=== PATIENT | male | born 1945 | race Caucasian/White ===

== ENCOUNTER 2018-04-08 07:58 | Inpatient (IN) ==
--- NOTE | 2018-04-03 12:41 | MH ---
cc: Be Bolaños MD DATE OF ADMISSION: 04/08/2018 PREOPERATIVE DIAGNOSIS: Osteoarthritis, left knee. HISTORY: The patient is a 72-year-old white male who has experienced pain of his left knee extending back at least for 17 years. In 2001, he reports having undergone orthopedic evaluation, at which time he was diagnosed as having an arthritic condition and encouraged to conform the conservative management, being told that at some point in the future, he may require a more aggressive course of treatment. He began bicycle riding as a form of exercise activities that has become his passion averaging approximately 100 miles per week at this time. The majority of his current riding involves back with trails for which he has begun to experience increasing difficulty maintaining the exercise routine. He has undergone recent evaluation with his primary care physician, at which time he did receive an intraarticular injection about the knee that did not afford him any appreciable benefit. His x-ray studies reported medial joint space osteoarthritis with mild tricompartmental spurring. The patient has been taking both Tylenol and ibuprofen for pain management and wearing a copper elastic knee support. He did reveal that he had undergone an arthrotomy of his left knee in the early involving a medial meniscectomy that was completed in the [place] area. The patient reported an uneventful recovery at that time. At the time of his more current evaluation, he did receive a repeat intra-articular injection about his left knee and was followed on an outpatient basis thereafter. The alternatives to continue conservative management versus operative intervention involving total knee arthroplasty were outlined in detail. Emphasis was made regarding the fact that the decision to proceed with surgery would be left entirely to the patient's discretion. The patient considered his options in this regard and subsequently returned to the office in more recent followup expressing his desire to proceed accordingly. In compliance with his wishes, he is currently being admitted in order that the above be accomplished. His past medical history, hospitalizations, and surgeries have included open reduction internal fixation of a right ankle fracture, tonsillectomy, right cataract excision, colonoscopy and medical management for a balance disorder that apparently was related to the temporary labyrinth condition. The patient denies active medical illnesses. He has had hemorrhoidectomy and cystoscopy for history of kidney stone. He takes no prescribed medications. He does take CoQ10, Aleve and a hemp product [id number] and he is currently taking some steroid eyedrops following his recent history of surgery. REVIEW OF SYSTEMS: He does wear glasses. Denies headaches, seizure or syncope. No sinus congestion or epistaxis. Diminished auditory acuity, especially with low tones about the right ear. No tinnitus. No bleeding gums or dysphagia. Denies cough, shortness of breath, upper respiratory infection, pneumonia, or tuberculosis. No angina or heart disease. His appetite is good. Bowel movements are regular. There is a questionable history of hepatitis in the past. No ulcers. Positive history of hemorrhoids. No urinary tract infection. There is a history of kidney stones. No prostate disease. Fractures of the left fibula, the left long finger and the right thumb all treated nonoperatively. Additional fracture of the right ankle as described. No psychiatric illness. His remaining review of systems is unremarkable and noncontributory. FAMILY HISTORY: 52 years. is 71 years of age, in good health. Two daughters, both of whom are described as being in good health. Family history is positive for hypertension, COPD and cancer of the colon. SOCIAL HISTORY: The patient completed a master's degree. 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 He denies active use of tobacco since the early , but he had been less than a 1 pack per day smoker for about 8 years prior to that time. Ethanol consumption in a very limited and social basis. PHYSICAL EXAMINATION: VITAL SIGNS: Height 6 feet 1 inch, weight 197 pounds. GENERAL: An alert, oriented, and responsive 72-year-old white male who sits quietly upon the examination table. No obvious distress. HEAD, EARS, EYES, NOSE AND THROAT: Pupils are equal, round and reactive to light. Extraocular movements full. Sclerae are clear. External nares clear. External auditory canals clear. Dental intact. Mucous membranes pink and moist. Pharynx clear. NECK: Supple. Minimal discomfort at the extremes of motion indicated to be chronic in nature with the patient reporting a longstanding history of stress injury to his neck region that apparently was later diagnosed as having some type of fracture. Carotid pulse is palpable bilaterally. Trachea midline. Thyroid without enlargement. LUNGS: Clear to auscultation and percussion. No CVA tenderness. No discomfort throughout the dorsolumbar spine. HEART: Regular rate and rhythm. No murmur, gallop. ABDOMEN: Soft, nontender, bowel sounds present. RECTAL: Per primary care physician. EXTREMITIES: Left knee, a well-healed surgical wound along the medial aspect of the left knee consistent with prior history of surgery. No appreciable swelling or effusion. Posteromedial joint line tenderness without palpable deformity. Apprehension and compression sign negative. Limited mobility towards the extremes of flexion with mild suggestion of crepitation. No collateral ligamentous laxity. Som test and drawer sign negative. Pivot shift and Esha sign minimally positive for medial compartment pain. Straight leg raising unremarkable at 80 degrees. Satisfactory mobility of the left hip with no associated pain. Mild antalgic gait. NEUROLOGIC: Cranial nerves 2-12 grossly intact. IMPRESSION: Osteoarthritis, left knee. PLAN: Left total knee arthroplasty. The nature of the planned surgical procedure, the potential complications and risks associated, the expectations of surgery and the consent form were thoroughly reviewed with the patient in the presence of his prior to admission to the hospital. Pavel has indicated his full understanding regarding all of the above and given consent to proceed with treatment as outlined. Medical evaluation and clearance for surgery completed by his primary care physician, Dr. Thomas. MD CHRISTOPHER Hernandez/[email or web address]/german , 11:47 AM , 12:03 PM
[2018-04-08] MEDS ORDERED: Chlorhexidine Gluconate 2% 1 Pack (2 Cloths) TOPICAL ONE (08:30)
[2018-04-08] MEDS ORDERED: Metoprolol Tartrate 25 MG Tablet PO ONE (08:30)
[2018-04-08] MEDS ORDERED: Sodium Chlor 0.9% Inj 50 ML, Bupivacaine Liposo PF 1.3% Inj 20 ML, Bupivacaine PF 0.25%... P-ARTICULR ONE ×3 (08:31)
[2018-04-08] MEDS ORDERED: ceFAZolin 2 GM Premix Inj 2 GM/50 ML PIGGYBACK IV.SIG SCH (09:00)
[2018-04-08] MEDS ORDERED: Sodium Chlor 0.9% Inj 500 ML IV.SIG SCH (09:00)
[2018-04-08] MEDS ORDERED: Bupivacaine Liposomal PF 1.3% Inj 20 ML Vial ONE (09:09)
[2018-04-08] MEDS ORDERED: fentaNYL Citrate Inj 100 MCG/2 ML Ampul ONE ×2 (09:19→13:02)
[2018-04-08] MEDS ORDERED: Ketorolac Inj 30 MG/ML (IVP) Vial IV.PUSH ONE (10:25)
[2018-04-08] MEDS ORDERED: Normosol-R pH 7.4 Inj 1,000 ML IV.CONT ONE (10:25)
[2018-04-08] MEDS ORDERED: Neostigmine Inj 5 MG/5 ML Syringe IV.PUSH ONE (10:25)
[2018-04-08] MEDS ORDERED: Lidocaine PF 1% Inj 5 ML Syringe OTHER ONE (10:25)
[2018-04-08] MEDS ORDERED: Phenylephrine/NS 1000 MCG/10ML Syringe IV.PUSH ONE (10:25)
[2018-04-08] MEDS ORDERED: Glycopyrrolate Inj 1 MG/5 ML Syringe IV.PUSH ONE (10:25)
[2018-04-08] MEDS: Tranexamic Acid Inj 1,000 MG in Sodium Chlor 0.9% Inj 100 ML IV.SIG SCH ×2 (10:56→14:08)
[2018-04-08] MEDS ORDERED: Bisacodyl 10 MG Supp RECTAL PRN (13:08)
[2018-04-08] MEDS ORDERED: Post-op Orders (for Pharmacy) OTHER STA (13:08)
[2018-04-08] MEDS ORDERED: Aluminum/Magnesium/Simethacone Susp 30 ML UDC PO PRN ×2 (13:08→17:48)
[2018-04-08] MEDS ORDERED: Morphine Inj 30 MG/30 ML PCA.VIAL PCA PRN (13:08)
[2018-04-08] MEDS ORDERED: Morphine Inj 4 MG/ML Vial IV.PUSH PRN (13:08)
[2018-04-08] MEDS ORDERED: Naloxone Inj 0.4 MG/ML Vial IV.PUSH PRN (13:08)
[2018-04-08] MEDS ORDERED: Acetaminophen 325 MG Tablet PO PRN (13:08)
--- NOTE | 2018-04-08 13:11 | P.DCO ---
- Diagnosis (1) Degenerative joint disease of knee, left Status: Acute - Physical Therapy Order: Evaluate and treat, Improve ambulation, Strength and gait training - Home Health Nursing Order: Wound care and dressing changes, Nursing assessment with vital signs - Talent Recruiter Order: To evaluate: Living conditions/environment, Support services Order: To provide: Long range planning, Community services - Case Management Consult Case Management Consult-Home Health: Yes - Certification I have seen patient aPvel Perez on 04/08/18. My clinical findings support the need for the requested home health care services because: Limited ability to care for self, High risk of falls I certify that my clinical findings support that this patient is homebound because: Post-op weakness, Unsteady gait/balance, Unsafe to leave home unassisted (1) Degenerative joint disease of knee, left Qualifiers: Osteoarthritis type: primary Qualified Code(s): M17.12 - Unilateral primary osteoarthritis, left knee
[2018-04-08] MEDS ORDERED: Morphine Inj 30 MG/30 ML PCA.VIAL PCA ONE (13:16)
[2018-04-08] MEDS ORDERED: *morphine SULFATE 4 MG/ML PERIprocedure ONLY ONE (13:17)
--- NOTE | 2018-04-08 13:39 | MP ---
cc: Be Bolaños MD DATE OF OPERATION: 04/08/2018 PREOPERATIVE DIAGNOSIS: Osteoarthritis, left knee. POSTOPERATIVE DIAGNOSIS: Osteoarthritis, left knee. PROCEDURE PERFORMED: Left total knee arthroplasty. SURGEON: Be Bolaños MD ANESTHESIA: General endotracheal. INDICATIONS: This is a 72-year-old white male with a 17-year history of left knee pain, having undergone previous orthopedic evaluation, at which time he was diagnosed as having an arthritic condition and conformed to conservative management over the years thereafter. With the passage of time, he became progressively more symptomatic with pain being unresponsive to ongoing conservative management. He noted that he had undergone a previous arthroscopic medial meniscectomy in the early 1970s with an uneventful recovery thereafter. He had undergone a more recent orthopedic evaluation with the undersigned physician, at which time x-ray studies revealed obvious degenerative changes being most pronounced throughout the medial compartment with near [id number] apposition. Findings and treatment options were reviewed. The pros and cons of continued conservative management versus operative intervention involving a total knee arthroplasty were outlined in detail. Emphasis was made regarding the fact that the decision to proceed with surgery would be left entirely to the patient's discretion. The patient considered his options in this regard and subsequently expressed a desire to proceed accordingly for which he was currently scheduled for admission to the hospital. FORMAT: Following induction of satisfactory general anesthesia by endotracheal intubation as completed per the Department of Anesthesia, a tourniquet was established around the proximal portion of the left lower extremity. The extremity proper was isolated with a U-drape, thereafter being prepped with Betadine solution and draped into a sterile field in the routine manner. Prior to initiation of the actual procedure, the standard timeout protocol was completed. All parameters were appropriately addressed and confirmed by operating room personnel. The extremity was elevated for approximately 1 minute and the tourniquet thus inflated to 250 mmHg pressure. A sharp skin incision was initiated midline over the anterior aspect of the knee and developed through the underlying subcutaneous tissue with hemostasis maintained by electrocautery. By deepening dissection, the anterior capsule was exposed, the medial capsulotomy completed and the patella subluxed in the lateral orientation. Examination of the joint space revealed severe degenerative changes throughout the medial compartment where there was complete erosion of articular cartilage and subchondral bone exposed. The degenerative process extended into the patellofemoral articulation. The articular surface of the patella was resected. The 3-hole guide was utilized for establishing post holes. The anterior cruciate ligament as well as medial and lateral meniscus structures were sharply excised. A centering hole was placed in the distal aspect of the femur, allowing positioning of the intramedullary guide. The distal femoral cutting jig was attached and the distal femur resected. AP measurement noted 75 mm sizing to be appropriate. The matching cutting block was positioned. Anterior, posterior and chamfer cuts were completed. The tibial plateau was subluxed in an anterior orientation, allowing positioning of the extramedullary guide. The tibial plateau was resected and measured with 87 mm sizing determined to be satisfactory. A trial reduction followed utilizing a 75 mm anatomic femoral component and an 87 mm tibial base with 10 mm bearing inserts trialed. The 10 mm thickness was determined to be a satisfactory fit. The knee was readily brought to full extension. There was no laxity to varus and valgus stress at both 0 and 90 degrees flexed posture. Orientation was confirmed as appropriate with measurement of the pelvic guide through the mechanical access of the knee. A trial reduction followed utilizing a 34 mm standard 3 post-patellar button. Once again, good tracking noted with no tendency towards subluxation. All trial components being removed, the remaining portion of the proximal tibia was prepared for insertion of the permanent component. The joint space was thoroughly lavaged with pulsating antibiotic solution, hemostasis maintained by electrocautery. An autogenous bone plug was inserted into the distal femoral guide hole and thereafter a preparation of Biomet bone cement was utilized in inserting knee components in a sequential fashion, which included an 87 mm fixed cruciate tibial plate to which a 10 mm Vanguard tibial bearing insert was secured with locking clemente. The 75 mm Vanguard femoral component was firmly seated onto the distal femur, excess cement being removed. The knee was brought to full extension and thereafter, the 34 mm standard 3 post-patellar button was attached and maintained in place with patellar clamp while cement hardening was completed. Final range of motion assessment noted good tracking and stability throughout the knee, irrigation repeated with hemostasis maintained. Autovac drain tubes were inserted through superior stab wounds. The capsule was repaired with 0 Vicryl suture. The remaining portion of the wound was closed in layers in the routine manner, skin margins being reapproximated with a running subcuticular 3-0 Vicryl suture. An Exparel cocktail was injected both pre and post implantation of components. Tourniquet deflated after 55 minutes of tourniquet time. Anesthesia discontinued. The patient was thus transferred to a hospital bed and returned to the recovery room in satisfactory condition, having tolerated his operative procedure well. Estimated blood loss was approximately 100 mL as determined per Anesthesia. All implants were of the Biomet pump house operator. MD CHRISTOPHER Hernandez/agustín , 12:58 PM , 01:10 PM
[2018-04-08] MEDS ORDERED: Tranexamic Acid Inj 1,000 MG in Sodium Chlor 0.9% Inj 100 ML IV.SIG SCH ×4 (14:00)
--- NOTE | 2018-04-08 14:02 | XR ---
EXAM DATE: 04/08/2018 1:58 PM EST AGE/SEX: 72 years / Male INDICATIONS: Left total knee replacement. CLINICAL DATA: This is the patient's initial encounter. Patient reports that signs and symptoms have been present for 1 day and indicates a pain score of 6/10. MEDICAL/SURGICAL HISTORY: None. None. COMPARISON: POI, XR KNEE COMPLETE, LEFT, 01/15/2018. . FINDINGS: Patient is now postop left total knee arthroplasty. Alignment appears normal. No fracture. Surgical d rains are present; no perceptible joint effusion. CONCLUSION: Expected radiographic appearance postop total knee arthroplasty. No acute complication demonstrated. Electronically signed by: Bobby Diaz MD Board Certified Radiologist 04/08/2018 2:00 PM EST
--- NOTE | 2018-04-08 17:41 | P.CONIM ---
History of Present Illness Consult date: 04/08/18 Reason for Consult: Opinion and recommendation of treatment patient's cataracts and nausea Primary Care Provider: Jacob Thomas JR, DO History of Present Illness: 72-year-old white male with a history of osteoarthritis, cataracts who had long-term history of left knee pain despite conservative treatment and electively underwent a left total knee arthroplasty with Dr. Bolaños, orthopedic surgery today. Patient states that he has some mild postop nausea. He also reports a history of chronic constipation when he takes narcotics. He denies a history of bloody stools or black stools. He reports a history of heartburn sensation in which he takes ranitidine over-the- counter. Overall he states that his pain is controlled postoperatively. He has been using nepafenac eye drop for his right eye to help with inflammation. He denies any eye pain, blurred vision, or eye redness. He has no other complaints at this time. Review of Systems Review of Systems: all other systems reviewed are negative PMFSH History History Provided By: Patient Family History Family History Mother COPD (chronic obstructive pulmonary disease) Social History Social History Substance History: No History of Abuse Second Hand Smoke Exposure: No Smoking Status: Former smoker Tobacco Type: Cigarettes How Often Do You Have a Drink Containing Alcohol: 2 to 4 times a month Recent Travel in [facility] within the Last 8 Weeks: No Recent Out of Country Travel within the Last 8 Weeks: No Medications and Allergies Allergies Allergy/AdvReac Type Severity Reaction Status Date / Time No Known Allergies Allergy Verified 04/08/18 08:35 Home Medications Medication Instructions Recorded Confirmed Type coQ10 (ubiquinol) 100 mg PO DAILY 03/27/18 03/27/18 History ranitidine HCl 300 mg PO DAILY PRN 03/27/18 03/27/18 History nepafenac [Ilevro] 1 drp RIGHT EYE DAILY 04/08/18 04/08/18 History Active Medications: Active Medications Acetaminophen (Tylenol) 650 mg PO Q6H PRN PRN Reason: FEVER > 102 F Hydrocodone Bitart/Acetaminophen ([place] 5/325) 1 tab PO Q4H PRN PRN Reason: PAIN LESS THAN 5 ON SCALE Hydrocodone Bitart/Acetaminophen ([place] 5/325) 2 tab PO Q6H PRN PRN Reason: PAIN SCALE 5 TO 10 Al Hydrox/Mg Hydrox/Simethicone (Mag-Al Plus Susp Liq) 30 ml PO Q6H PRN PRN Reason: INDIGESTION Al Hydroxide/Mg Hydroxide (Milk Of Magnesia Liq) 30 ml PO BID PRN PRN Reason: Mild Constipation Aspirin (Aspirin) 325 mg PO BID DAMON Bisacodyl (Dulcolax Supp) 10 mg RECTAL DAILY PRN PRN Reason: SEVERE CONSITIPATION Famotidine (Pepcid) 20 mg PO BID PRN PRN Reason: ACID REFLUX Lactated Ringer's (Lr 1000 Ml Inj) 1,000 mls @ 30 mls/hr IV.SIG .Q24H [facility] Stop: 04/09/18 08:29 Last Infusion: 04/08/18 12:52 Dose: Infused Sodium Chloride (Ns Inj) 500 mls @ 30 mls/hr IV.SIG .Q10H DAMON Cefazolin Sodium/Dextrose (Ancef 2 Gm Premix Inj) 2 gm in 50 mls @ 100 mls/hr IV.SIG ADVANCED DEVELOPER [facility] Stop: 04/12/18 08:59 Last Infusion: 04/08/18 11:15 Dose: Infused Lactated Ringer's (Lr 1000 Ml Inj) 1,000 mls @ 80 mls/hr IV.CONT .[id number] DAMON Morphine Sulfate (Morphine Inj) 30 mg in 30 mls @ 0 mls/hr SUSTAINABILITY MANAGER UNSCH PRN PRN Reason: prn pain Stop: 04/09/18 13:07 Tranexamic Acid 1,000 mg/ (Sodium Chloride) 110 mls @ 200 mls/hr IV.SIG ADVANCED DEVELOPER [facility] Stop: 04/08/18 20:00 Cefazolin Sodium 1 gm/ Sodium (Chloride) 100 mls @ 200 mls/hr IV.SIG Q6H [facility] Stop: 04/09/18 05:29 Lactulose (Lactulose Liq) 30 ml PO DAILY PRN PRN Reason: SEVERE CONSITIPATION Miscellaneous Information (Misc Nursing Information) 0 each OTHER UNSCH PRN PRN Reason: SEE DOSE INSTRUCTIONS Miscellaneous Information (Misc Nursing Information) 0 each OTHER UNSCH PRN PRN Reason: SEE LABEL COMMENTS Stop: 04/09/18 12:59 Morphine Sulfate (Morphine Inj) 2 mg IV.PUSH Q3H PRN PRN Reason: BREAKTHROUGH PAIN Naloxone HCl (Narcan Inj) 0.4 mg IV.PUSH PRN PRN PRN Reason: Resp rate < 10 Ondansetron HCl (Zofran Inj) 4 mg IV.PUSH Q6H PRN PRN Reason: NAUSEA OR VOMITING Patient Own Med ( Nepafenac [Ilevro] 1 Drp) 0.3% Instill 1 Drop Into Right Eye Daily 0 each RIGHT EYE DAILY [facility] Povidone Iodine (Betadine 7.5% Scrub) 1 applicatio TOPICAL ONCE DAMON Stop: 04/12/18 08:59 Last Admin: 04/08/18 09:25 Dose: 1 applicatio Senna/Docusate Sodium (Denisha-Colace) 1 tab PO BID [facility] Sennosides (Senokot) 17.2 mg PO BID PRN PRN Reason: Moderate Constipation Sodium Chloride (Ns Flush) 2 ml IV.FLUSH BID DAMON Sodium Chloride (Ns Flush) 2 ml IV.FLUSH PRN PRN PRN Reason: FLUSH AFTER USING IV ACCESS Zolpidem Tartrate (Ambien) 5 mg PO HS PRN PRN Reason: INSOMNIA Physical Exam Vital signs: Vital Signs 04/08/18 08:43 04/08/18 12:56 04/08/18 13:00 Temperature 97.2 F L Pulse Rate 61 71 67 Respiratory Rate 16 13 19 Blood Pressure 181/99 H 153/69 H 130/68 Pulse Oximetry 99 99 97 04/08/18 13:15 04/08/18 13:19 04/08/18 13:30 Temperature Pulse Rate 61 64 Respiratory Rate 14 12 12 Blood Pressure 131/72 129/64 Pulse Oximetry 98 99 04/08/18 13:45 04/08/18 14:00 04/08/18 14:15 Temperature Pulse Rate 56 L 61 59 L Respiratory Rate 12 12 12 Blood Pressure 150/71 H 134/66 143/74 H Pulse Oximetry 98 99 99 04/08/18 14:30 04/08/18 15:00 04/08/18 15:30 Temperature 97.8 F Pulse Rate 66 69 63 Respiratory Rate 14 22 18 Blood Pressure 144/72 H 156/83 H 143/76 H Pulse Oximetry 96 100 99 04/08/18 16:41 Temperature 97.3 F L Pulse Rate 73 Respiratory Rate 18 Blood Pressure 154/76 H Pulse Oximetry 98 Intake & Output 04/07/18 04/08/18 04/08/18 18:59 06:59 18:59 Intake Total 1160 / 1160 Output Total 200 / 200 Balance 960 / 960 Weight 90.6 kg Intake: IV 1160 / 1160 LR 1000 mL Inj 1,000 ML @ 30 1000 / 1000 mls/hr IV.SIG .Q24H [facility]ON Rx#: [id number] Cyklokapron Inj 1,000 MG In NS 110 / 110 Inj 100 ML @ 200 mls/hr IV.SIG ONCE [facility] Rx#:[id number] Ancef 2 GM Premix Inj 2 gm In 50 / 50 50 ml @ 100 mls/hr IV.SIG ADVANCED DEVELOPER [facility]ON Rx#:[id number] Output: Estimated Blood Loss 100 / 100 Wound Drainage 100 / 100 # 1 Left Upper Knee 100 / 100 Other: Weight On Admission 90.6 kg Narrative: GENERAL: Well-nourished well-developed pleasant male sitting up in a chair in no acute distress SKIN: Warm and dry. HEAD: Atraumatic. Normocephalic. EYES: Pupils equal and round. No scleral icterus. No injection or drainage. ENT: No nasal bleeding or discharge. Mucous membranes pink and moist. NECK: Trachea midline. No JVD. CARDIOVASCULAR: Regular rate and rhythm. RESPIRATORY: No accessory muscle use. Clear to auscultation. Breath sounds equal bilaterally. GASTROINTESTINAL: Abdomen soft, non-tender, nondistended. Normoactive bowel sounds MUSCULOSKELETAL: Left knee bandage clean dry and intact drain in place NEUROLOGICAL: Awake and alertTo person place time. No obvious cranial nerve deficits. Motor grossly within normal limits. Normal speech. PSYCHIATRIC: Appropriate mood and affect; insight and judgment normal. Results Labs CBC & Chem 7: 04/09/18 04:00 Imaging Impressions Knee X-Ray 04/08/18 13:05 CONCLUSION: Expected radiographic appearance postop total knee arthroplasty. No acute complication demonstrated. ABG Impressions Knee X-Ray 04/08/18 13:05 CONCLUSION: Expected radiographic appearance postop total knee arthroplasty. No acute complication demonstrated. Assessment and Plan (1) Degenerative joint disease of knee, left: Code(s): M17.12 - Unilateral primary osteoarthritis, left knee Status: Acute Plan 72-year-old male Status post left total knee arthroplastycontinue postoperative care, pain control, physical therapy per orthopedic surgery Zofran per nausea Cataract history - resume nepafenac eye drops as prescribed constipation history - schedule bowel regimen pericolace bid elevated BP - may be due to pain, will monitor, IV vasotec prn for SBP>180 DVT prophylaxis- aspirin per Ortho Thank you for this consultation _ (1) Degenerative joint disease of knee, left Qualifiers: Osteoarthritis type: primary Qualified Code(s): M17.12 - Unilateral primary osteoarthritis, left knee
[2018-04-08] MEDS: ceFAZolin Inj 1 GM in Sodium Chlor 0.9% Inj 100 ML IV.SIG SCH ×2 (18:02→23:23)
[2018-04-08] MEDS ORDERED: Famotidine 20 MG Tablet PO PRN (21:00)
[2018-04-08] MEDS ORDERED: Zolpidem Tartrate 5 MG Tablet PO PRN (21:00)
[2018-04-08] MEDS: Senna/Docusate Sodium 8.6/50 MG Tablet PO SCH (21:31)
[2018-04-08] MEDS: Aspirin 325 MG Tablet PO SCH (21:31)
[2018-04-09] MEDS: ceFAZolin Inj 1 GM in Sodium Chlor 0.9% Inj 100 ML IV.SIG SCH (05:07)
[2018-04-09 05:10] LABS: Hemoglobin 12.7 gm/dL (13.0-17.0)
[2018-04-09] MEDS: Senna/Docusate Sodium 8.6/50 MG Tablet PO SCH ×2 (08:02→23:52)
[2018-04-09] MEDS ORDERED: Non-Formulary Drug (Coq10 (Ubiquinol) [Coq10 (Ubiquinol)] 100 MG) PO SCH (09:00)
[2018-04-09] MEDS: Aspirin 325 MG Tablet PO SCH ×2 (10:00→23:51)
--- NOTE | 2018-04-09 13:23 | P.PNIM ---
Subjective Interval history: Reports his nausea has improved and resolved. Tolerating breakfast. He states that he will stay 1 more day and return home with home health care tomorrow. Overall his pain is controlled. Did walk in the hallways with physical therapy today. Physical Exam Vital signs: Vital Signs 04/08/18 13:30 04/08/18 13:45 04/08/18 14:00 Temperature Pulse Rate 64 56 L 61 Respiratory Rate 12 12 12 Blood Pressure 129/64 150/71 H 134/66 Pulse Oximetry 99 98 99 04/08/18 14:15 04/08/18 14:30 04/08/18 15:00 Temperature Pulse Rate 59 L 66 69 Respiratory Rate 12 14 22 Blood Pressure 143/74 H 144/72 H 156/83 H Pulse Oximetry 99 96 100 04/08/18 15:30 04/08/18 16:41 04/08/18 21:55 Temperature 97.8 F 97.3 F L 97.4 F L Pulse Rate 63 73 71 Respiratory Rate 18 18 16 Blood Pressure 143/76 H 154/76 H 133/71 Pulse Oximetry 99 98 95 04/09/18 00:45 04/09/18 06:05 04/09/18 08:00 Temperature 98.1 F 97.5 F L 98.5 F Pulse Rate 72 71 74 Respiratory Rate 16 16 18 Blood Pressure 120/67 128/75 130/68 Pulse Oximetry 95 95 98 04/09/18 12:00 Temperature 99 F Pulse Rate Respiratory Rate 18 Blood Pressure 131/70 Pulse Oximetry 99 Intake & Output 04/08/18 04/09/18 04/09/18 18:59 06:59 18:59 Intake Total 1260 / 1260 820 / 820 100 / 100 Output Total 200 / 200 570 / 570 Balance 1060 / 1060 250 / 250 100 / 100 Weight 90.6 kg 90.5 kg Intake: IV 1260 / 1260 100 / 100 100 / 100 LR 1000 mL Inj 1,000 ML @ 30 1000 / 1000 mls/hr IV.SIG .Q24H [facility] Rx#: [id number] Cyklokapron Inj 1,000 MG In NS 110 / 110 Inj 100 ML @ 200 mls/hr IV.SIG ONCE [facility] Rx#:[id number] Ancef 2 GM Premix Inj 2 gm In 50 / 50 50 ml @ 100 mls/hr IV.SIG [employer] [facility] Rx#:[id number] Ancef Inj 1 GM In NS Inj 100 ML 100 / 100 100 / 100 100 / 100 @ 200 mls/hr IV.SIG Q6H [facility] Rx #:[id number] Oral 720 / 720 Output: Urine 400 / 400 Estimated Blood Loss 100 / 100 Wound Drainage 100 / 100 170 / 170 # 1 Left Upper Knee 100 / 100 170 / 170 Other: Date of Last Bowel Movement 04/08/18 # Bowel Movements 0 Weight On Admission 90.6 kg Narrative: GENERAL: Well-nourished well-developed pleasant male sitting up in a chair in no acute distress CARDIOVASCULAR: Regular rate and rhythm. RESPIRATORY: No accessory muscle use. Clear to auscultation. Breath sounds equal bilaterally. GASTROINTESTINAL: Abdomen soft, non-tender, nondistended. MUSCULOSKELETAL: Left knee bandage clean dry, previous dry blood, and intact drain in place NEUROLOGICAL: Awake and alert to person place time Motor grossly within normal limits. Normal speech. Results Labs CBC & Chem 7: 04/09/18 04:00 Imaging Imaging: Impressions Knee X-Ray 04/08/18 13:05 CONCLUSION: Expected radiographic appearance postop total knee arthroplasty. No acute complication demonstrated. Assessment and Plan (1) Degenerative joint disease of knee, left: Code(s): M17.12 - Unilateral primary osteoarthritis, left knee Status: Acute Plan 72-year-old male Status post operative day #1 left total knee arthroplastycontinue postoperative care, pain control, physical therapy per orthopedic surgery Zofran per nausea Cataract history - resume nepafenac eye drops as prescribed constipation history - schedule bowel regimen pericolace bid elevated BP - may be due to pain, blood pressure much better controlled today, no further treatment needed DVT prophylaxis- aspirin per Ortho Medically stable to be transitioned home, will sign off and re-consult as needed Progress Note: Quality VTE Deep Vein Thrombosis/Pulmonary Embolism Present on Admission: No _ (1) Degenerative joint disease of knee, left Qualifiers: Osteoarthritis type: primary Qualified Code(s): M17.12 - Unilateral primary osteoarthritis, left knee
[2018-04-09] MEDS: NEPAFENAC 0.3% RIGHT EYE SCH (18:42)
--- NOTE | 2018-04-10 07:41 | MD ---
cc: Be Bolaños MD, Dr. DATE OF DISCHARGE: 04/10/2018 ADMITTING DIAGNOSIS: Osteoarthritis, left knee. DISCHARGE DIAGNOSIS: Osteoarthritis, left knee. HISTORY: A 72-year-old white male with a lengthy history of left knee pain extending back for at least 17 years, having undergone previous orthopedic evaluation and diagnosed with an arthritic condition for which he initially had conformed to conservative management. Over the years, he became progressively more symptomatic with pain that began to limit all weightbearing activities. He had undergone recent office evaluation, at which time x-ray studies had revealed obvious degenerative changes about the left knee for which findings and treatment options were reviewed. The pros and cons of continued conservative management versus operative intervention that would involve total knee arthroplasty were outlined in detail. Emphasis was made regarding the fact that the decision to proceed with surgery would be left entirely to the patient's discretion. The patient considered his options in this regard and subsequently indicated his desire to proceed accordingly ;and in compliance with his wishes, he was scheduled for admission at this time in order that the above be accomplished. For additional details with regard to his pertinent history, interested parties would be direct to the documentation of his admitting history and physical report. PHYSICAL EXAMINATION: His physical examination at the time of admission revealed a well-healed surgical wound along the medial aspect of the left knee consistent with a prior history of surgery. No appreciable swelling or effusion. Posteromedial joint line tenderness, without palpable deformity. Apprehension and compression sign negative. Limited mobility for the extremes of flexion with crepitation is suggested. No collateral ligamentous laxity. Som test and drawer sign negative. Pivot shift and Esha sign positive for medial compartment pain. Straight-leg raising unremarkable at 80 degrees. Satisfactory mobility of the left hip with no associated pain. Mild antalgic gait. HOSPITAL COURSE: Prior to admission to the hospital, the patient had undergone medical evaluation and clearance for surgery as completed by his primary care physician, Dr. Thomas. He was taken to the operating room on 04/08/2018; and on that date, underwent a left total knee arthroplasty completed in an uncomplicated manner. The patient was noted to have tolerated his operative procedure well. His postoperative course stable thereafter. Hemoglobin and hematocrit assessment postoperatively was 12.7 and 36.0 respectively. The patient was progressively mobilized under the guidance of physical therapy, being permitted weightbearing to tolerance about the left lower extremity. Followup examination of his surgical wound noted to be intact, healing favorably with no evidence of infection. Medical followup per the hospitalist service. DVT prophylaxis initiated. Weight Loss Physician consulted to assist with discharge planning. The patient indicated a desire to be discharged home and continue his rehabilitation on an outpatient basis. Plans were finalized in this regard; and pending medical clearance, he was scheduled for discharge on the second postoperative day, at which time he was noted to be making favorable progress with regard to his initial rehabilitation program. He was scheduled to be seen in office followup in approximately 4 weeks. CONDITION AT THE TIME OF DISCHARGE: Stable. PROGNOSIS: Favorable. DISCHARGE MEDICATIONS: Included hydrocodone 5/325, #30. Aspirin 325 mg 1 tab twice daily for 3 weeks, #40. MD CHRISTOPHER Hernandez/soo , 06:38 AM , 06:45 AM
[2018-04-10] MEDS: Aspirin 325 MG Tablet PO SCH (08:42)
[2018-04-10] MEDS: Senna/Docusate Sodium 8.6/50 MG Tablet PO SCH (08:42)
[2018-04-10] MEDS: NEPAFENAC 0.3% RIGHT EYE SCH (08:43)
[2018-04-10 10:06] VITALS: BP 141/76; PULSE 82; RESP 15; TEMP 97.4; O2SAT 99
== END 2018-04-10 10:59 | disposition home health service (06) | DRG 470 ==
LOC: HSDC 07:58 → EDSTATUS 10:30 → N06 13:04
PROVIDERS: ADMIT Orthopaedic Surgery; ATTEND Orthopaedic Surgery
CPT/HCPCS: 73560; 85014; 85018; 86850; 86900; 86901; 88305; 94150; 97110; 97116; 97150; 97163; 97167; C1776; C9290; J0131; J0690; J1100; J1885; J2250; J2270; J2370; J2405; J2704; J2710; J3010; J7120